=== PATIENT | male | born 1960 | race African-American/Black ===

== ENCOUNTER 2018-02-12 12:58 | Emergency (ER) | payer BC ==
[~2018-02-12] VITALS: Ht 195.5 cm; Wt 125.6 kg
--- NOTE | ~2018-02-12 | EKG ---
[place], [place] ELECTROCARDIOGRAM REPORT NAME: RISHI DOWNING UNIT #: [id number] ROOM: DOCTOR: TERRA DRAFT REPORT BIRTHDATE: [birth year] [facility] Test Date: 2018-02-12 Test Time: 13:09:44 Pat Name: RISHI DOWNING Department: Room: Gender: Wiring Inspector: KAREN.[facility] : 1960 Requested By: EL PASTOR Order Number: [id number] Reading MD: Austin Rosado MD Measurements Intervals [place] Rate: 52 P: 58 MO: 170 QRS: 1 QRSD: 101 T: 61 QT: 405 QTc: 377 Interpretive Statements Sinus rhythm Probable left atrial enlargement Borderline ST elevation, anterior leads No previous ECG available for comparison Electronically Signed On 02-13-2018 8:48:23 PST by Austin Rosado MD CM:EKGRPT:ELECTROCARDIOGRAM REPORT [id number] EL ELLISON DRAFT REPORT EL PASTOR M.D.
[~2018-02-12 12:58] MED LIST: ASPIRIN EC325 MG PO; HYDR25T PO; LOTREL 5 MG-201 CA1 PO; NORFLEX100 MG PO; NORVASC5 MG PO; VICODIN ES 7501 TAB PO
[2018-02-12 14:08] LABS: BASO % 0.7 % (0.0-1.0); EOS # 0.1 10*3/uL (0.0-0.4); EOS % 1.1 % (1.0-4.0); HEMATOCRIT 41.7 % (42.0-52.0); HEMOGLOBIN 14.3 g/dl (14.0-18.0); LYMPH # 2.1 10*3/uL (1.3-4.4); LYMPH % 39.7 % (27.0-41.0); MEAN CORPUSCULAR HGB 29.5 pg (27.0-31.0); MEAN CORPUSCULAR HGB CONC 34.3 g/dl (33.0-37.0); MEAN PLATELET VOLUME 9.8 fl (9.6-12.3); MONO # 0.3 10*3/uL (0.1-1.0); MONO % 4.9 % (3.0-9.0); NEUT # 2.9 10*3/uL (2.3-7.9); NEUT % 53.2 % (47.0-73.0); PLATELET COUNT AUTOMATED 273 10*3/uL (130-400); RED BLOOD COUNT 4.85 10*6/uL (4.50-5.90); WHITE BLOOD COUNT 5.4 10*3/uL (4.8-10.8)
[2018-02-12 14:19] LABS: ACT PARTIAL THROMBO TIME 26.8 SECONDS (20.8-31.5)
[2018-02-12 14:25] LABS: ALBUMIN 3.6 gm/dl (3.1-4.5); ALKALINE PHOSPHATASE 81 U/L (45-117); BUN 14 mg/dl (7-24); CHLORIDE 103 mmol/L (98-107); CREATININE 1.34 mg/dL (0.70-1.30); POTASSIUM 3.2 mmol/L (3.5-5.1); SGOT/AST 24 IU/L (3-35); SGPT/ALT 29 U/L (12-78); SODIUM 141 mmol/L (136-145); TOTAL PROTEIN 7.9 gm/dL (6.4-8.2)
[2018-02-12 14:29] LABS: TROPONIN I < 0.015 ng/ml (<0.045)
== END 2018-02-12 18:30 | disposition home or self-care (01) ==
LOC: ED 12:58
PROVIDERS: Internal Medicine Nephrology
DX: R07.89 Other chest pain (principal); F41.1 Generalized anxiety disorder; F17.200 Nicotine dependence, unspecified, uncomplicated; Z79.899 Other long term (current) drug therapy; Z79.82 Long term (current) use of aspirin

== ENCOUNTER 2020-08-27 12:05 | Emergency (ER) | payer OTHER ==
[~2020-08-27] VITALS: Ht 195.5 cm; Wt 127.0 kg
[2020-08-27] MEDS ORDERED: MEDROL DOSEPAK4 MG PO (14:44)
== END 2020-08-27 14:50 | disposition home or self-care (01) ==
LOC: ED 12:05
DX: M54.12 Radiculopathy, cervical region (principal); Z98.890 Other specified postprocedural states; Z79.899 Other long term (current) drug therapy; Z79.82 Long term (current) use of aspirin

== ENCOUNTER → 2021-04-06 | Outpatient (CLI) | payer OTHER ==
[~2021-04-06] MED LIST changes: +MEDROL DOSEPAK4 MG PO
== END | disposition home or self-care (01) ==
LOC: COVID19 15:19
PROVIDERS: ATTEND Internal Medicine
DX: U07.1 COVID-19 (principal)